=== PATIENT | female | born 1975 | race Caucasian/White ===

== ENCOUNTER 2023-03-09 05:41 | Emergency (ER) | payer BC, SELFPAY ==
[2023-03-09 05:42] VITALS: BP 107/80; PULSE 85; RESP 16; TEMP 36.4; O2SAT 97; BMI 18.3
[2023-03-09] MEDS: Fluorescein 1 MG STRIP 1 STRIP LEFT EYE (05:53)
[2023-03-09] MEDS: Tetracaine 0.5% Ophthalmic Bottle 1 DRP LEFT EYE (05:54)
--- NOTE | 2023-03-09 06:01 | EX.ED.VIS.EY ---
HPI History of Present Illness Chief Complaint: Eye Problem Narrative Narrative: Patient woke up with a red eye on the left and somewhat cloudy vision. She initially thought she may have had a foreign body and she washed her eye thoroughly. She now feels like her eye is irritated but does not have foreign body sensation. She has no other complaints. She does not have any pain. PFS PFS Medical History no medical history Home Medications NK 03/09/23 [History Last Taken Unknown] Allergy/AdvReac Type Severity Reaction Status Date / Time No Known Allergies Allergy Verified 03/09/23 05:42 Social History Smoking Status: Current every day smoker tobacco type: cigarettes ROS ROS ED ROS Narrative Past medical history: Reviewed Medications: Reviewed Social history: Noncontributory Review of systems: General: No fever Eyes: As in HPI ENT: No upper airway congestion, normal voice Neck: No neck pain Hematologic: No easy bleeding or easy bruising EXAM Physical Exam Narrative Exam Narrative: Physical exam General: Well nourished, Well developed, No Acute Distress Head: Normocephalic, Atraumatic ENT: Moist mucous membranes Eyes: Patient has obvious conjunctivitis. I everted the no foreign body seen anywhere. See below for slit-lamp exam Neck: Supple, Nontender, No lymphadenopathy Const Vital Signs: 03/09/23 05:42 Temperature 97.6 F L Temperature Source Temporal Pulse Rate 85 Respiratory Rate 16 Blood Pressure 107/80 Blood Pressure Mean 89 Pulse Ox 97 MDM MDM MDM Narrative Medical decision making narrative: Slit-lamp exam performed by me Tetracaine and then fluorescein was placed Acuity she reports are deep and quiet. No uptake of dye. There is obvious conjunctivitis. Otherwise normal exam. MDM: Patient has conjunctivitis. There is no signs or symptoms of foreign body. I will treat her with antibiotic ointment. I will refer to ophthalmology. If there is no resolution patient is to return. Discharge Plan Triage Chief Complaint: Eye Problem ED Provider: Josiah Phelan Dx/Rx/DC Orders Clinical Impression: Eye redness, Conjunctivitis Instructions: Conjunctivitis Caused by Infection Prescriptions: No Action NK Primary Care Provider: Care Physician,No Primary Referrals: Zach Aldridge MD [Med Staff - Active Staff] - 1 Day Care Physician,No Primary [Primary Care Provider] - Activity Restrictions/Additional Instructions: Use the antibiotic ointment 3-4 times a day for 5 days. Otherwise make sure you see ophthalmology today or tomorrow. Disposition Disposition: Home, Self Care
[2023-03-09] MEDS: Erythromycin Base 1 OPTH.TUBE 1 APPLIC LEFT EYE (06:12)
== END 2023-03-09 06:24 | disposition home or self-care (01) ==
LOC: ED 06:23
PROVIDERS: Emergency Provider Emergency Medicine; Visit Provider Emergency Medicine
DX: H10.9 Unspecified conjunctivitis (principal); F17.210 Nicotine dependence, cigarettes, uncomplicated
CPT/HCPCS: 99283